=== PATIENT | male | born 1965 | race Caucasian/White ===

== ENCOUNTER → 2017-05-26 | Outpatient (CLI) | payer OTHER ==
[~2017-05-26] MED LIST: ALBU18002 INH; ALL180 PO; ASCA500 PO; CALC600T9 PO; CALCTAB5 PO; CETI10TA84 PO; CLX20 PO; ECHI400C11 PO; FLVHFA110 INH; GINK120T PO; MELO15TA4 PO; MULT-506 PO; PRIM50TA29 PO; PROP80TA2 PO; SERT-234 PO
[2017-05-26 09:54] LABS: URINE APPEARANCE CLEAR (CLEAR); URINE BILIRUBIN NEG (NEG); URINE COLOR YELLOW; URINE EPITHELIAL CELL AUTO 0-5 /lpf (0-5); URINE NITRITE NEG (NEG); URINE PH 7.5 (4.5-7.5); UROBILINOGEN NEG (NEG)
[2017-05-26 09:58] LABS: MANUAL MICROSCOPIC REQUIRED? NO; REVIEW REQ? NO
[2017-05-26 10:17] LABS: TOTAL IRON BINDING CAPACITY 382 mcg/dl (250-450)
[2017-05-29 05:41] LABS: ANTI-CENTROMERE AB <1.0 NEG AI (<1.0 NEG); ANTI-SS-A <1.0 NEG AI (<1.0 NEG); ANTI-SS-B <1.0 NEG AI (<1.0 NEG); DNA ds CRITHIDIA NEGATIVE (NEGATIVE); Sm Antibody <1.0 NEG AI (<1.0 NEG)
== END | disposition home or self-care (01) ==
LOC: C.LAB1850 08:59
PROVIDERS: ATTEND Internal Medicine Rheumatology
DX: M25.50 Pain in unspecified joint (principal); R76.8 Other specified abnormal immunological findings in serum

== ENCOUNTER → 2017-06-05 | Outpatient (CLI) | payer OTHER ==
--- NOTE | 2017-06-05 08:04 | DIAGNOSTIC IMAGING REPORT ---
MRI OF THE CERVICAL SPINE WITHOUT IV CONTRAST CLINICAL HISTORY: Chronic neck pain. Upper extremity weakness. COMPARISON STUDY: No priors. TECHNIQUE: MRI of the cervical spine is performed utilizing various T1 and T2-weighted sequences in the axial and sagittal planes. IV contrast was not administered for this examination. FINDINGS: Cervical spine: Vertebral body height and alignment are maintained throughout the cervical spine. Marrow signal intensity is slightly heterogeneous. Minimal chronic appearing degenerative endplate change is noted at C2-C3. The atlantodental articulation appears preserved. The spinous processes are intact. Intervertebral discs: Mild degenerative disc desiccation is seen throughout the cervical spine. The disc spaces appear preserved. Spinal cord: The cervical spinal cord is normal in morphology and signal intensity. C2-C3: Mild facet arthropathy is of no consequence. The central canal and neural foramina are patent. C3-C4: A posterior disc osteophyte complex eccentric to the left abuts the ventral cord. Uncovertebral and facet arthropathy cause severe bilateral neural foraminal stenosis. C4-C5: A tiny posterior disc osteophyte complex minimally effaces the ventral subarachnoid space. Uncovertebral and facet arthropathy cause moderate right and mild left neural foraminal stenosis. C5-C6: A posterior disc osteophyte complex effaces the ventral subarachnoid space. Uncovertebral and facet arthropathy cause moderate to severe right and [id number] left neural foraminal stenosis. C6-C7: Uncovertebral and facet arthropathy cause mild left neural foraminal stenosis. C7-T1: Unremarkable. Soft tissues: The prevertebral and paraspinous soft tissues are within normal limits. There is a 1.8 cm nodule identified in the left thyroid lobe. Brain parenchyma: The partially imaged brain parenchyma at the skull base is normal in appearance. IMPRESSION: 1. Mild multilevel cervical spondylosis as detailed above. See discussion for level by level analysis. 2. No destructive bony process is seen. 3. The cervical spinal cord is normal in morphology and signal intensity. 4. There is a 1.8 cm nodule identified in the left thyroid lobe. Follow-up with a dedicated thyroid ultrasound is recommended for further assessment. Dictated: 06/05/2017 7:53 AM Transcribed: 06/05/2017 8:03 AM [place] Electronically signed by: Eric Brooks M.D. 06/05/2017 8:29 AM Dictated Date/Time: 06/05/2017 7:53 AM
== END | disposition home or self-care (01) ==
LOC: C.MRIBC 06:55
PROVIDERS: ATTEND Psychiatry & Neurology Neurology
DX: M47.12 Other spondylosis with myelopathy, cervical region (principal); E04.1 Nontoxic single thyroid nodule

== ENCOUNTER → 2017-06-09 | Outpatient (CLI) | payer OTHER ==
[~2017-06-09] MED LIST changes: -ALL180 PO; -CALCTAB5 PO; -CLX20 PO
--- NOTE | 2017-06-09 08:58 | DIAGNOSTIC IMAGING REPORT ---
ULTRASOUND RIGHT UPPER QUADRANT ABDOMEN CLINICAL HISTORY: Bloating. COMPARISON STUDY: No priors. TECHNIQUE: Real-time, grayscale, and color flow sonography of the right upper quadrant of the abdomen was performed. Images are reviewed in the transverse and longitudinal planes. FINDINGS: Liver: The liver is normal in size and echotexture. There is no intrahepatic biliary ductal dilatation. The main portal vein is patent. There is a 1.9 cm well-circumscribed echogenic lesion in the right lobe of the liver. Gallbladder: Shadowing calcified gallstones are identified. There is no gallbladder wall thickening or pericholecystic fluid. A sonographic Rocha's sign is reportedly absent. The common bile duct measures up to 0.4 cm in diameter. Pancreas: Not well visualized due to overlying bowel gas. Right kidney: Survey images of the right kidney demonstrate normal size and echotexture. There is no hydronephrosis. A 6 mm exophytic cyst arises from the lower pole. Ascites: None. IMPRESSION: 1. Cholelithiasis without sonographic evidence of acute cholecystitis. 2. There is a 1.9 cm well-circumscribed echogenic lesion in the right hepatic lobe. Although pathologically indeterminant, the appearance is typical for a benign hemangioma. This is of low suspicion, and if confirmation is desired then an MRI of the liver would be required. 3. The pancreas was not well visualized due to overlying bowel gas. Electronically signed by: Eric Brooks M.D. 06/09/2017 8:56 AM Dictated Date/Time: 06/09/2017 8:54 AM
== END | disposition home or self-care (01) ==
LOC: C.ULTRBC 08:02
PROVIDERS: ATTEND Nurse Practitioner Adult Health
DX: K80.20 Calculus of gallbladder without cholecystitis without obstruction (principal); R14.0 Abdominal distension (gaseous); K76.9 Liver disease, unspecified

== ENCOUNTER → 2017-06-10 | Outpatient (CLI) | payer OTHER ==
--- NOTE | 2017-06-10 14:21 | DIAGNOSTIC IMAGING REPORT ---
TWO VIEW CHEST CLINICAL HISTORY: Asthma. FINDINGS: PA and lateral chest radiographs are obtained. The cardiomediastinal silhouette is unremarkable. There is left basilar atelectasis. The lungs and pleural spaces are otherwise clear. There is no pneumothorax. The bony thorax appears intact. IMPRESSION: No active disease in the chest. Electronically signed by: Eric Brooks M.D. 06/10/2017 2:20 PM Dictated Date/Time: 06/10/2017 2:17 PM
== END | disposition home or self-care (01) ==
LOC: C.RAD1850 14:03
PROVIDERS: ATTEND Internal Medicine Pulmonary Disease
DX: J45.909 Unspecified asthma, uncomplicated (principal)

== ENCOUNTER → 2017-06-16 | Outpatient (CLI) | payer OTHER ==
--- NOTE | 2017-06-16 08:47 | DIAGNOSTIC IMAGING REPORT ---
ULTRASOUND OF THE THYROID GLAND CLINICAL HISTORY: Thyroid nodule seen by MRI. COMPARISON STUDY: MRI of the cervical spine dated 06/05/2017. TECHNIQUE: Real-time, grayscale, and color flow sonography of the thyroid gland is performed utilizing a high-frequency linear transducer. Images are reviewed in the transverse and longitudinal planes. FINDINGS: Right lobe: The right lobe of the thyroid gland is normal in size and homogeneous in echotexture, measuring 5.2 x 2.1 x 1.7 cm. A hypoechoic nodule in the upper pole measures 0.7 x 0.5 x 0.6 cm. Left lobe: The left lobe of the thyroid gland is normal in size and homogeneous in echotexture, measuring 4.9 x 2.4 x 2.2 cm. A heterogeneous hypoechoic nodule in the lower pole measures 2.4 x 1.6 x 1.7 cm. This demonstrates internal flow on color imaging. Isthmus: The thyroid isthmus is normal in appearance and measures 0.3 cm in AP diameter. IMPRESSION: There is a 2.4 cm hypoechoic nodule in the left lower pole, corresponding to the abnormality seen by MRI. Fine-needle aspiration of this nodule is recommended based on size criteria. Electronically signed by: Eric Brooks M.D. 06/16/2017 8:46 AM Dictated Date/Time: 06/16/2017 8:44 AM
== END | disposition home or self-care (01) ==
LOC: C.ULTRBC 08:00
PROVIDERS: ATTEND Psychiatry & Neurology Neurology
DX: E04.1 Nontoxic single thyroid nodule (principal)

== ENCOUNTER 2017-06-20 05:50 | Observation (INO) | payer OTHER ==
[~2017-06-20] VITALS: Ht 185.4 cm; Wt 97.7 kg
[2017-06-20] MEDS ORDERED: OMEP20TA PO (06:13)
[2017-06-20] MEDS ORDERED: ONDANSETRON 4MG OD TAB PO STA (06:17)
[2017-06-20] MEDS ORDERED: PROP20TA67 PO (06:20)
[2017-06-20] MEDS ORDERED: METO-157 PO (06:21)
[2017-06-20] MEDS ORDERED: AZEL0.15 NAE (06:22)
[2017-06-20] MEDS ORDERED: PROMETHAZINE HCL INJ 12.5 MG in SODIUM CHLORIDE 0.9% 50ML 50 ML IV STA (06:34)
[2017-06-20 06:43] LABS: BASO % 0.1 %; BASO ABS # 0.01 K/uL (0-0.2); COMPLETE YES; EOS % 1.1 %; HEMATOCRIT 47.6 % (42-52); IG% 0.1 %; LYMPH % 5.4 %; LYMPH ABS # 0.41 K/uL (1.2-3.4); MEAN CELL VOLUME 87.7 fL (80-100); MEAN CORPUSCULAR HEMOGLOBIN 31.9 pg (25-34); MEAN CORPUSCULAR HGB CONC 36.3 g/dl (32-36); MONO % 7.6 %; NEUT % 85.7 %; PLATELET COUNT 136 K/uL (130-400); RED BLOOD COUNT 5.43 M/uL (4.7-6.1); WHITE BLOOD COUNT 7.54 K/uL (4.8-10.8)
[2017-06-20] MEDS ORDERED: SODIUM CHLORIDE 0.9% 1000ML 1,000 ML IV ONE (06:45)
[2017-06-20 06:53] LABS: BUN/CREATININE RATIO 20.7 (10-20); CALCIUM 9.5 mg/dl (8.5-10.1); CREATININE 1.09 mg/dl (0.60-1.40); POTASSIUM 3.9 mmol/L (3.5-5.1)
[2017-06-20 06:56] LABS: ALB/GLOB RATIO 1.3 (0.9-2)
--- NOTE | 2017-06-20 09:17 | DIAGNOSTIC IMAGING REPORT ---
GALLBLADDER-ABD LIMITED CLINICAL HISTORY: ruq pain pain. Nausea. TECHNIQUE: Ultrasound COMPARISON STUDY: 06/09/2017 FINDINGS: Gallstones are again noted within the gallbladder lumen. Gallbladder wall is normal. No abnormal or cholecystic fluid. Common bile duct measures 4 mm. There is a 1.6 cm echogenic nodule] right hepatic lobe consistent with a benign hemangioma is again noted. Pancreas is unremarkable. Right kidney is negative for hydronephrosis. The right renal cysts as well as a small nonobstructing lower pole calcifications present. IMPRESSION: 1. Gallstones. 2. Normal caliber bile ducts. 3. Incidental findings unchanged from the prior exam. The above report was generated using voice recognition software. It may contain grammatical, syntax or spelling errors. Electronically signed by: Anthony Goncalves M.D. 06/20/2017 9:15 AM Dictated Date/Time: 06/20/2017 9:12 AM
[2017-06-20] MEDS ORDERED: ONDANSETRON INJ 2 MG/ML 2 ML VIAL IV STA (09:51)
--- NOTE | 2017-06-20 11:11 | EMERGENCY ROOM VISIT NOTE ---
History Report prepared by Tona: Pankaj Yepez Under the Supervision of: Dr. Eduard Valenzuela M.D. First contact with patient: 06:29 Chief Complaint: VOMITING Stated Complaint: VOMITING,DIARRHEA Nursing Triage Summary: pt c/o bloating and vomiting beginning last night approx 22:00. states he has an appointment today to schedule potential gall bladder surgery, reports he was seen earlier this week for abd pain/bloating and given medication. states pain is "pressing" on his back and chest. pt associates diarrhea and hiccuping History of Present Illness The patient is a 51 year old male who presents to the Emergency Room with complaints of persistent vomiting beginning 8 hours ago. He states that he has been having episodes of similar symptoms associated with GERD and back pain for several years. He recently had a scan and was found to have large gallbladder stones. The patient states that he has been hiccuping a lot between episodes of vomiting. He also complains of abdominal pain. He denies any leg swelling. Source of History: patient Onset: 8 hours ago Quality: other (vomiting) Timing: other (persistent) Associated Symptoms: + abdominal pain Note: The patient denies any leg swelling. Review of Systems All systems have been listed, reviewed, and are negative other than those previously mentioned. Please see Additional Medical History Sheet. Past Medical & Surgical Medical Problems: (1) Abdominal bloating (2) Hernia (3) Nausea and vomiting (4) RUQ abdominal pain Surgical Problems: (1) H/O elbow surgery (2) S/P wrist surgery Family History No pertinent family history stated. Social History Smoking Status: Never Smoker Marital Status: Current/Historical Medications Scheduled Ascorbic Acid (Vitamin C), 500 MG PO DAILY Calcium Carbonate-Vitamin D (Calcium + D), 1 TAB PO DAILY Cetirizine (Zyrtec), 10 MG PO DAILY Echinacea (Echinacea), 400 MG PO BID Fluticasone Propionate (Flovent Hfa), 1 PUFF INH BID Ginkgo Biloba (Gnp Ginkgo Biloba), 1 TAB PO DAILY Meloxicam (Meloxicam), 15 MG PO QAM Metoclopramide (Reglan), 5 MG PO TID Multivitamin (Multivitamin), 1 TAB PO DAILY Omeprazole (Omeprazole), 20 MG PO QAM Primidone (Mysoline), 50 MG PO QAM Propranolol (Inderal), 40 MG PO BID Sertraline (Zoloft), 200 MG PO QAM Scheduled PRN Azelastine Hcl (Astepro), 2 SPRY AARON DAILY PRN for CONGESTION Allergies Coded Allergies: No Known Allergies (Unverified , 06/05/17) Physical Exam Vital Signs Date Time Temp Pulse Resp B/P (MAP) Pulse Ox O2 Delivery O2 Flow Rate FiO2 06/20/17 12:00 99 16 110/63 96 Room Air 06/20/17 10:02 91 16 104/64 93 Room Air 06/20/17 08:32 88 18 105/63 94 Room Air 06/20/17 05:57 37.0 104 20 145/85 98 Room Air Physical Exam GENERAL: Patient awake, alert, oriented x 3. Marked distress. Extremely uncomfortable appearing. Patient follows commands. Patient does not appear toxic. Patient is adequately hydrated and well-nourished. SKIN: No erythema, pallor, cyanosis or rash HEENT: Normal head, pupils equal, reactive to light and accommodation. Oral cavity and posterior pharynx appear normal. Neck: Without adenopathy, no neck vein distention. LUNGS: Clear to auscultation. No wheezes, no rales, no rhonchi. HEART: No murmurs. No gallops. No rubs ABDOMEN: No masses, no hepatomegaly or splenomegaly. Diffuse tenderness mostly to the RUQ. Positive guarding. No rebound. EXTREMITIES: No signs of trauma. No pedal or pretibial edema. No calf or thigh tenderness. NEUROLOGIC: Cranial nerves II-XII within normal limits. No gross motor sensory function deficits. Medical Decision & Procedures ER Provider Diagnostic Interpretation: Radiology results as stated below per my review and radiologist interpretation: GALLBLADDER-ABD LIMITED FINDINGS: Gallstones are again noted within the gallbladder lumen. Gallbladder wall is normal. No abnormal or cholecystic fluid. Common bile duct measures 4 mm. There is a 1.6 cm echogenic nodule] right hepatic lobe consistent with a benign hemangioma is again noted. Pancreas is unremarkable. Right kidney is negative for hydronephrosis. The right renal cysts as well as a small nonobstructing lower pole calcifications present. IMPRESSION: 1. Gallstones. 2. Normal caliber bile ducts. 3. Incidental findings unchanged from the prior exam. The above report was generated using voice recognition software. It may contain grammatical, syntax or spelling errors. Electronically signed by: Anthony Goncalves M.D. 06/20/2017 9:15 AM Laboratory Results 06/20/17 06:14 Red Blood Count 5.43, Mean Corpuscular Volume 87.7, Mean Corpuscular Hemoglobin 31.9, Mean Corpuscular Hemoglobin Concent 36.3, Mean Platelet Volume 9.0, Neutrophils (%) (Auto) 85.7, Lymphocytes (%) (Auto) 5.4, Monocytes (%) (Auto) 7.6, Eosinophils (%) (Auto) 1.1, Basophils (%) (Auto) 0.1, Neutrophils # (Auto) 6.46, Lymphocytes # (Auto) 0.41, Monocytes # (Auto) 0.57, Eosinophils # (Auto) 0.08, Basophils # (Auto) 0.01 06/20/17 06:14 Test 06/20/17 06:14 White Blood Count 7.54 K/uL (4.8-10.8) Red Blood Count 5.43 M/uL (4.7-6.1) Hemoglobin 17.3 g/dL (14.0-18.0) Hematocrit 47.6 % (42-52) Mean Corpuscular Volume 87.7 fL (80-100) Mean Corpuscular Hemoglobin 31.9 pg (25-34) Mean Corpuscular Hemoglobin Concent 36.3 g/dl (32-36) Platelet Count 136 K/uL (130-400) Mean Platelet Volume 9.0 fL (7.4-10.4) Neutrophils (%) (Auto) 85.7 % Lymphocytes (%) (Auto) 5.4 % Monocytes (%) (Auto) 7.6 % Eosinophils (%) (Auto) 1.1 % Basophils (%) (Auto) 0.1 % Neutrophils # (Auto) 6.46 K/uL (1.4-6.5) Lymphocytes # (Auto) 0.41 K/uL (1.2-3.4) Monocytes # (Auto) 0.57 K/uL (0.11-0.59) Eosinophils # (Auto) 0.08 K/uL (0-0.5) Basophils # (Auto) 0.01 K/uL (0-0.2) RDW Standard Deviation 40.6 fL (36.4-46.3) RDW Coefficient of Variation 12.8 % (11.5-14.5) Immature Granulocyte % (Auto) 0.1 % Immature Granulocyte # (Auto) 0.01 K/uL (0.00-0.02) Anion Gap 8.0 mmol/L (3-11) Est Creatinine Clear Calc Drug Dose 99.8 ml/min Estimated GFR () 91.2 Estimated GFR (Non- 78.7 BUN/Creatinine Ratio 20.7 (10-20) Calcium Level 9.5 mg/dl (8.5-10.1) Total Bilirubin 2.1 mg/dl (0.2-1) Aspartate Amino Transf (AST/SGOT) 15 U/L (15-37) Alanine Aminotransferase (ALT/SGPT) 37 U/L (12-78) Alkaline Phosphatase 77 U/L (45-117) Total Protein 7.9 gm/dl (6.4-8.2) Albumin 4.4 gm/dl (3.4-5.0) Globulin 3.5 gm/dl (2.5-4.0) Albumin/Globulin Ratio 1.3 (0.9-2) Lipase 135 U/L (73-393) Laboratory results as stated above per my review. Medications Administered Medications (Trade) Dose Ordered Sig/Shante Route Start Time Stop Time Status Last Admin Dose Admin Ondansetron HCl (Zofran Odt) 4 mg NOW STAT PO 06/20/17 06:17 06/20/17 06:18 DC 06/20/17 06:24 4 MG Promethazine HCl 12.5 mg/Sodium Chloride 50.5 ml @ 204 mls/hr NOW STAT IV 06/20/17 06:34 06/20/17 06:48 DC 06/20/17 06:48 204 MLS/HR Sodium Chloride 1,000 ml @ 1,000 mls/hr Q1H ONCE IV 06/20/17 06:45 06/20/17 07:44 DC 06/20/17 06:48 1,000 MLS/HR Ondansetron HCl (Zofran Inj) 4 mg NOW STAT IV 06/20/17 09:51 06/20/17 09:52 DC 06/20/17 10:15 4 MG Ondansetron HCl (Zofran Inj) 4 mg Q4H PRN IV 06/20/17 12:15 07/20/17 12:14 06/20/17 12:35 4 MG Morphine Sulfate (MoRPHine SULFATE INJ) 1 mg Q1H PRN IV 06/20/17 12:15 07/04/17 12:14 06/20/17 14:02 1 MG ED Course 0629: Past medical records reviewed. The patient was evaluated in room B9. A complete history and physical examination was performed. 0634: Ordered Promethazine HCl 12.5 mg/Sodium Chloride 50.5 ml @ 204 mls/hr IV. 0645: Ordered Sodium Chloride 1000 ml @ 1000 mls/hr IV. 0951: Ordered Zofran Inj 4 mg IV. 1055: Upon reevaluation, the patient is resting comfortably.I discussed today's findings with him. He verbalized agreement of the treatment plan. I spoke with Ana Mueller PA-C of General Surgery to evaluate the patient for further management. Medical Decision Nurses notes reviewed. Medical history sheet reviewed. Differential diagnosis includes but is not limited to: cholelithiasis, cholecystitis, ruptured viscus, and peritonitis. Multiple labs and imaging were obtained. Please see above. Liver enzymes are not elevated. White count is not elevated. Ultrasound does not show cholecystitis but only cholelithiasis. The patient has stones similar to what he had in the past but now the pain is much worse along with nausea and vomiting. I discussed care with Dr. Chowdhury, who scheduled to see the patient in his office today. The patient and are adamant about having something done NOAH. I was instructed to call the surgeon on-call which I did. I spoke with the physician practice assistant who managed to have the patient admitted for surgery in the near future. Medication Reconcilliation Current Medication List: was personally reviewed by me Blood Pressure Screening Patient's blood pressure: Normal blood pressure Blood pressure disposition: Did not require urgent referral Consults Time Called: [phone] Consulting Physician: Dr. Chowdhury -General Surgery Returned Call: [phone] Discussed the patient's case with Dr. Chowdhury. He recommends consultation with the on-call surgeon. Additional Consults: Time Called: 1050 Consulted Physician: Ana Mueller PA-C -General Surgery Returned Call: [phone] Additional Comments: Discussed the patient's case with Ana Mueller PA-C. The patient will be evaluated for further management. Impression Primary Impression: Cholelithiasis Additional Impressions: Nausea & vomiting Dehydration Scribe Attestation The scribe's documentation has been prepared under my direction and personally reviewed by me in its entirety. I confirm that the note above accurately reflects all work, treatment, procedures, and medical decision making performed by me. Departure Information Dispostion Being Evaluated By Surgeon Referrals RV. Peralta MD (PCP) Patient Instructions My [facility] Problem Qualifiers
[2017-06-20] MEDS ORDERED: MoRPHine SULFATE 4 MG/ML 1 ML CARP\\VIAL IV PRN (12:15)
[2017-06-20] MEDS ORDERED: MoRPHine SULFATE 2 MG/ML CARP IV PRN (12:15)
[2017-06-20] MEDS ORDERED: PROMETHAZINE HCL INJ 12.5 MG in SODIUM CHLORIDE 0.9% 50ML 50 ML IV PRN (12:15)
[2017-06-20] MEDS ORDERED: ONDANSETRON INJ 2 MG/ML 2 ML VIAL IV PRN (12:15)
[2017-06-20 12:35] VITALS: O2SAT 96; Ht 185.4 cm; Wt 97.7 kg
--- NOTE | 2017-06-20 12:43 | History and Physical ---
History & Physical Date & Time of Service: Jun 20, 2017 at 12:31 Chief Complaint: Vomiting,Diarrhea Primary Care Physician: RV. Peralta MD History of Present Illness Source: patient Chris is a 51 year-old male who presented to emergency department this morning with complaints of persistent nausea and vomiting with associated abdominal pain and diarrhea. States he recently had a work-up by PCP with an ultrasound that showed gallstones and was scheduled to meet with Dr. Chowdhury this morning to discuss gallbladder removal. States he has had hiccups for the past week with abdominal bloating. Has watched what he has been eating decreasing any fatty/greasy meals. States the pain originated in his back but now has radiated to the right upper abdomen. Pain is on and off. Nausea and vomiting however has been persistent since last evening. Diarrhea with different colored stools no rectal bleeding. Has slight chills this am but no fever. Has never had problems with his gallbladder before. Has noticed postprandial bloating and feeling full quicker in the past couple of months to years. Has decade history of heartburn which he takes tums for. Was just prescribed Omeprazole. Denies of any significant increase in heartburn/reflux in the last week. Denies of night sweats, vomiting blood, chest pain, shortness of breath other than his normal (takes Inhaler daily and rescue inhaler as needed), difficulty breathing, blood in stools, blood in urine, or difficulty urinating. US on 06/09/2017 showed gallstones however no GB wall thickening or pericholecystic fluid US today showed same with no significant change and no signs of acute cholecystitis. Patient states he did have pain during the ultrasound today however. Labs showed no leukocytosis , LFTS within normal limits however T. Bili elevated at 2.1 Past Medical/Surgical History Past Medical history: 1. Hand tremors 2. Enlarged Thyroid 3. GERD 4. Cholelithiasis 5. Arthritis in knee Past Surgical History: (1) Bilateral inguinal Hernia repair with mesh (open) (2) H/O elbow surgery (3) S/P wrist surgery (4) Eye Surgery Family History Patient adopted, unsure of family history Social History Smoking Status: Never Smoker Marital Status: Multi-Drug Resistant Organisms History of MDRO: No Allergies Coded Allergies: No Known Allergies (Unverified , 06/05/17) Home Medications Scheduled Ascorbic Acid (Vitamin C), 500 MG PO DAILY Calcium Carbonate-Vitamin D (Calcium + D), 1 TAB PO DAILY Cetirizine (Zyrtec), 10 MG PO DAILY Echinacea (Echinacea), 400 MG PO BID Fluticasone Propionate (Flovent Hfa), 1 PUFF INH BID Ginkgo Biloba (Gnp Ginkgo Biloba), 1 TAB PO DAILY Meloxicam (Meloxicam), 15 MG PO QAM Metoclopramide (Reglan), 5 MG PO TID Multivitamin (Multivitamin), 1 TAB PO DAILY Omeprazole (Omeprazole), 20 MG PO QAM Primidone (Mysoline), 50 MG PO QAM Propranolol (Inderal), 40 MG PO BID Sertraline (Zoloft), 200 MG PO QAM Scheduled PRN Azelastine Hcl (Astepro), 2 SPRY AARON DAILY PRN for CONGESTION Review of Systems Constitutional: + chills, No fever, No sweats Respiratory: No cough, No shortness of breath Cardiovascular: No chest pain Abdomen: + pain, + nausea, + vomiting, + diarrhea, No constipation, No GI bleeding Musculoskeletal: + problem reported (back pain more so in right mid back) Genitourinary - Male: + dysuria (just today), No hematuria Endocrine: No fatigue Integumentary: No rash, No itch Physical Exam Vital Signs Date Time Temp Pulse Resp B/P (MAP) Pulse Ox O2 Delivery O2 Flow Rate FiO2 06/20/17 12:00 9 16 110/63 96 Room Air 06/20/17 10:02 91 16 104/64 93 Room Air 06/20/17 08:32 88 18 105/63 94 Room Air 06/20/17 05:57 37.0 104 20 145/85 98 Room Air General Appearance: WD/WN, + mild distress Head: normocephalic, atraumatic Eyes: sclerae normal ENT: hearing grossly normal Neck: supple, no adenopathy, trachea midline Respiratory/Chest: lungs clear, normal breath sounds, no respiratory distress, no accessory muscle use Cardiovascular: regular rate, rhythm, no murmur Abdomen/GI: soft, no organomegaly, no pulsatile mass, + tenderness (in RUQ, negative Rocha's sign, no peritonitis or rigidity), + distended Back: normal inspection Extremities/Musculoskelatal: normal inspection Neurologic/Psych: alert, normal mood/affect, oriented x 3 Skin: normal color, warm/dry, no rash Diagnostics Laboratory Results Results Past 24 Hours Test 06/20/17 06:14 Range/Units White Blood Count 7.54 4.8-10.8 K/uL Red Blood Count 5.43 4.7-6.1 M/uL Hemoglobin 17.3 14.0-18.0 g/dL Hematocrit 47.6 42-52 % Mean Corpuscular Volume 87.7 80-100 fL Mean Corpuscular Hemoglobin 31.9 25-34 pg Mean Corpuscular Hemoglobin Concent 36.3 32-36 g/dl Platelet Count 136 130-400 K/uL Mean Platelet Volume 9.0 7.4-10.4 fL Neutrophils (%) (Auto) 85.7 % Lymphocytes (%) (Auto) 5.4 % Monocytes (%) (Auto) 7.6 % Eosinophils (%) (Auto) 1.1 % Basophils (%) (Auto) 0.1 % Neutrophils # (Auto) 6.46 1.4-6.5 K/uL Lymphocytes # (Auto) 0.41 1.2-3.4 K/uL Monocytes # (Auto) 0.57 0.11-0.59 K/uL Eosinophils # (Auto) 0.08 0-0.5 K/uL Basophils # (Auto) 0.01 0-0.2 K/uL RDW Standard Deviation 40.6 36.4-46.3 fL RDW Coefficient of Variation 12.8 11.5-14.5 % Immature Granulocyte % (Auto) 0.1 % Immature Granulocyte # (Auto) 0.01 0.00-0.02 K/uL Sodium Level 137 136-145 mmol/L Potassium Level 3.9 3.5-5.1 mmol/L Chloride Level 107 98-107 mmol/L Carbon Dioxide Level 22 21-32 mmol/L Anion Gap 8.0 3-11 mmol/L Blood Urea Nitrogen 23 7-18 mg/dl Creatinine 1.09 0.60-1.40 mg/dl Est Creatinine Clear Calc Drug Dose 99.8 ml/min Estimated GFR () 91.2 Estimated GFR (Non- 78.7 BUN/Creatinine Ratio 20.7 10-20 Random Glucose 116 70-99 mg/dl Calcium Level 9.5 8.5-10.1 mg/dl Total Bilirubin 2.1 0.2-1 mg/dl Aspartate Amino Transf (AST/SGOT) 15 15-37 U/L Alanine Aminotransferase (ALT/SGPT) 37 12-78 U/L Alkaline Phosphatase 77 45-117 U/L Total Protein 7.9 6.4-8.2 gm/dl Albumin 4.4 3.4-5.0 gm/dl Globulin 3.5 2.5-4.0 gm/dl Albumin/Globulin Ratio 1.3 0.9-2 Lipase 135 73-393 U/L Diagnostic Radiology GALLBLADDER-ABD LIMITED CLINICAL HISTORY: ruq pain pain. Nausea. TECHNIQUE: Ultrasound COMPARISON STUDY: 06/09/2017 FINDINGS: Gallstones are again noted within the gallbladder lumen. Gallbladder wall is normal. No abnormal or cholecystic fluid. Common bile duct measures 4 mm. There is a 1.6 cm echogenic nodule] right hepatic lobe consistent with a benign hemangioma is again noted. Pancreas is unremarkable. Right kidney is negative for hydronephrosis. The right renal cysts as well as a small nonobstructing lower pole calcifications present. IMPRESSION: 1. Gallstones. 2. Normal caliber bile ducts. 3. Incidental findings unchanged from the prior exam. Impression Assessment and Plan 51 year-old with Symptomatic Cholelithiasis who presents to emergency department with persistent nausea and vomiting with associated chills and diarrhea that started last evening around 10 pm. RUQ abdominal increasing in the past week. Pain began in the right mid back and has now moved mostly to the right upper abdomen. Associated bloating with intractable hiccups. US showing cholelithiasis however no signs of acute cholecystitis. No leukocytosis and afebrile. T. Bili elevated at 2.1 however rest of LFTS and lipase within normal limits. Plan: Will admit patient for observation for the evening and plan for laparoscopic cholecystectomy tomorrow morning. Discussed procedure and risks with the patient and his , they both understood, informed consent will be obtained by Dr. Negron Will ensure he is kept NPO Will start IV fluids, IV antibiotics, IV Zofran/Phenergan, IV pain medication as needed Will add simethicone chew tabs as needed for bloating Will also add IV Protonix daily given history of GERD SCDs Will get a set of labs in the am cbc, bmp, and liver profile will also obtain EKG preoperatively Discussed patient with Dr. Negron who agrees with above Level of Care Med/Surg VTE Prophylaxis VTE Risk Assessment Done? Y/N: Yes Risk Level: Low
[2017-06-20] MEDS ORDERED: PIPERACILL/TAZOBAC IV 3.375 GM in DEXTROSE 5% 100ML IV STA (13:24)
[2017-06-20] MEDS ORDERED: PIPERACILL/TAZOBAC CONSULT ACTIVE PRN (13:30)
[2017-06-20 13:45] VITALS: BP 113/73; PULSE 89; TEMP 38.3; O2SAT 96
[2017-06-20] MEDS ORDERED: IV FLUIDS COMPLETED PRN (13:45)
[2017-06-20] MEDS: SODIUM CHLORIDE 0.9% 1000ML 1,000 ML IV SCH ×2 (14:02→22:25)
[2017-06-20] MEDS: PANTOprazole INJ 40 MG in SYRINGE 0 ML IV SCH (14:33)
[2017-06-20 15:26] VITALS: BP 130/64; PULSE 112; TEMP 37.7; O2SAT 95
[2017-06-20] MEDS: SIMETHICONE 80 MG CHEW PO PRN (15:36)
[2017-06-20] MEDS: ACETAMINOPHEN 325 MG TAB PO PRN (15:47)
[2017-06-20] MEDS ORDERED: NURSING VERBAL MED ORDER ONE (17:15)
[2017-06-20 17:23] VITALS: TEMP 37.5
[2017-06-20] MEDS ORDERED: CHLORPROMAZINE HCL 25 MG TAB PO PRN (17:30)
[2017-06-20] MEDS: PIPERACILL/TAZOBAC IV 3.375 GM in DEXTROSE 5% 100ML 100 ML IV SCH (20:15)
[2017-06-20 23:21] VITALS: BP 120/71; PULSE 81; TEMP 36.9; O2SAT 95
[2017-06-21] VITALS (8 sets, daily range): BP systolic 118–162; BP diastolic 77–89; PULSE 68–111; TEMP 36.3–37; O2SAT 94–97
[2017-06-21] MEDS: PIPERACILL/TAZOBAC IV 3.375 GM in DEXTROSE 5% 100ML 100 ML IV SCH ×3 (04:27→20:31)
--- NOTE | 2017-06-21 05:16 | Surgery Progress Note ---
Surgery Progress Note Date of Service Jun 21, 2017. Subjective Post OP Day: HD 2 + feeling well (hiccups better), + flatus, + pain controlled, No nausea, No vomiting Objective Vital Signs: Date Time Temp Pulse Resp B/P (MAP) Pulse Ox O2 Delivery O2 Flow Rate FiO2 06/20/17 23:35 Room Air 06/20/17 23:21 36.9 81 16 120/71 (87) 95 Room Air 06/20/17 17:23 37.5 06/20/17 15:40 Room Air 06/20/17 15:26 37.7 112 18 130/64 (86) 95 Room Air 06/20/17 13:45 38.3 89 24 113/73 (86) 96 Room Air 06/20/17 12:35 96 Room Air 06/20/17 12:00 99 16 110/63 96 Room Air 06/20/17 10:02 91 16 104/64 93 Room Air 06/20/17 08:32 88 18 105/63 94 Room Air 06/20/17 05:57 37.0 104 20 145/85 98 Room Air General Appearance: WD/WN, no apparent distress Head: normocephalic, atraumatic Neck: supple, trachea midline Respiratory/Chest: lungs clear Cardiovascular: regular rate, rhythm Abdomen: normal bowel sounds, non distended, soft, + tenderness Extremities: non-tender, no pedal edema Laboratory Results: Results Past 24 Hours Test 06/20/17 06:14 06/21/17 04:44 Range/Units White Blood Count 7.54 4.8-10.8 K/uL Red Blood Count 5.43 4.7-6.1 M/uL Hemoglobin 17.3 14.0-18.0 g/dL Hematocrit 47.6 42-52 % Mean Corpuscular Volume 87.7 80-100 fL Mean Corpuscular Hemoglobin 31.9 25-34 pg Mean Corpuscular Hemoglobin Concent 36.3 32-36 g/dl Platelet Count 136 130-400 K/uL Mean Platelet Volume 9.0 7.4-10.4 fL Neutrophils (%) (Auto) 85.7 % Lymphocytes (%) (Auto) 5.4 % Monocytes (%) (Auto) 7.6 % Eosinophils (%) (Auto) 1.1 % Basophils (%) (Auto) 0.1 % Neutrophils # (Auto) 6.46 1.4-6.5 K/uL Lymphocytes # (Auto) 0.41 1.2-3.4 K/uL Monocytes # (Auto) 0.57 0.11-0.59 K/uL Eosinophils # (Auto) 0.08 0-0.5 K/uL Basophils # (Auto) 0.01 0-0.2 K/uL RDW Standard Deviation 40.6 36.4-46.3 fL RDW Coefficient of Variation 12.8 11.5-14.5 % Immature Granulocyte % (Auto) 0.1 % Immature Granulocyte # (Auto) 0.01 0.00-0.02 K/uL Sodium Level 137 136-145 mmol/L Potassium Level 3.9 3.5-5.1 mmol/L Chloride Level 107 98-107 mmol/L Carbon Dioxide Level 22 21-32 mmol/L Anion Gap 8.0 3-11 mmol/L Blood Urea Nitrogen 23 7-18 mg/dl Creatinine 1.09 0.60-1.40 mg/dl Est Creatinine Clear Calc Drug Dose 99.8 ml/min Estimated GFR () 91.2 Estimated GFR (Non- 78.7 BUN/Creatinine Ratio 20.7 10-20 Random Glucose 116 70-99 mg/dl Calcium Level 9.5 8.5-10.1 mg/dl Total Bilirubin 2.1 0.2-1 mg/dl Aspartate Amino Transf (AST/SGOT) 15 15-37 U/L Alanine Aminotransferase (ALT/SGPT) 37 12-78 U/L Alkaline Phosphatase 77 45-117 U/L Total Protein 7.9 6.4-8.2 gm/dl Albumin 4.4 3.4-5.0 gm/dl Globulin 3.5 2.5-4.0 gm/dl Albumin/Globulin Ratio 1.3 0.9-2 Lipase 135 73-393 U/L Assessment & Plan Acute cholecystitis -IV abx -to OR for lap jose antonio today
[2017-06-21] MEDS: SODIUM CHLORIDE 0.9% 1000ML 1,000 ML IV SCH ×3 (05:32→22:12)
[2017-06-21] MEDS ORDERED: FENTANYL CITRATE INJ 50 MCG/1 ML 2 ML VIAL ONE ×3 (06:23→08:06)
[2017-06-21] MEDS ORDERED: MIDAZOLAM HCL 1 MG/ML 2ML VIAL ONE (06:23)
[2017-06-21] MEDS ORDERED: LIDOCAINE HCL 2% 2 ML VIAL (20MG/ML) ONE (06:56)
[2017-06-21] MEDS ORDERED: ONDANSETRON INJ 2 MG/ML 2 ML VIAL ONE (06:56)
[2017-06-21] MEDS ORDERED: PROPOFOL IV EMULSION 10 MG/ML 20 ML VIAL IV ONE (06:56)
[2017-06-21] MEDS ORDERED: ROCURONIUM BROMIDE 10 MG/ML 5 ML VIAL IV ONE (06:56)
[2017-06-21] MEDS ORDERED: DEXAMETHASONE SOD INJ 4 MG/ML VIAL ONE (06:56)
[2017-06-21] MEDS ORDERED: BUPIVACAINE/EPINEPHRINE 0.5% MPF 1:200,000 30 ML VIAL ONE (07:08)
[2017-06-21] MEDS ORDERED: ATROPINE SULFATE 0.1 MG/ML 5ML SYR IV PRN (07:30)
[2017-06-21] MEDS ORDERED: PROMETHAZINE HCL INJ 12.5 MG in SODIUM CHLORIDE 0.9% 50ML 50 ML IV PRN (07:30)
[2017-06-21] MEDS ORDERED: ONDANSETRON INJ 2 MG/ML 2 ML VIAL IV PRN (07:30)
[2017-06-21] MEDS ORDERED: KETOROLAC TROMETHAMINE 30 MG/ML VIAL IV. PRN (07:30)
[2017-06-21] MEDS ORDERED: LABETALOL HCL IV 5 MG/ML 20ML IV PRN (07:30)
[2017-06-21] MEDS ORDERED: GLYCOPYRROLATE INJ 0.2 MG/ML VIAL ONE (08:05)
[2017-06-21] MEDS ORDERED: NEOSTIGMINE METHYLSULFATE 5 MG/5 ML SYR ONE (08:05)
[2017-06-21] MEDS ORDERED: OXYCODONE/ACETAMINOPHEN 5-325 TAB PO PRN (08:15)
--- NOTE | 2017-06-21 08:15 | [facility] Post Operative Brief Note ---
Immediate Operative Summary Operative Date Jun 21, 2017. Pre-Operative Diagnosis Acute Cholecystitis Post-Operative Diagnosis same Procedure(s) Performed Laparoscopic Cholecystectomy Surgeon Dr. Negron Mirror Painter Surgeon(s) none Estimated Blood Loss 25 ML Findings acute inflammation Specimens a. gallbladder Drains none Anesthesia GETA w/marcaine Complication(s) None Disposition Recovery Room / PACU
[2017-06-21] MEDS ORDERED: HYDROmorphone INJ 2 MG/ML SYR/VIAL ONE (08:35)
[2017-06-21] MEDS: HYDROmorphone INJ 2 MG/ML SYR/VIAL IV PRN ×4 (08:37→09:00)
--- NOTE | 2017-06-21 08:45 | OPERATIVE REPORT ---
DATE OF OPERATION: 06/21/2017 PREOPERATIVE DIAGNOSIS: Acute cholecystitis. POSTOPERATIVE DIAGNOSIS: Same. PROCEDURE PERFORMED: Laparoscopic cholecystectomy. SURGEON: Dr. Won Negron. TYPEWRITER ALIGNER: None. ANESTHESIA: General endotracheal with 0.5% Marcaine with epinephrine local. ESTIMATED BLOOD LOSS: 25 mL DRAINS: None. COMPLICATIONS: None. SPECIMENS: Gallbladder sent to pathology. INDICATION FOR PROCEDURE: This is a 51-year-old male who was seen through the ER with complaints of right upper quadrant abdominal pain. He had known gallstones. A repeat ultrasound was done. It did not show any acute findings consistent with acute cholecystitis. He had continued pain. Therefore, he will be admitted, placed on IV antibiotics, IV fluids and taken to the OR for laparoscopic cholecystectomy. We talked to him in detail about the risks. DESCRIPTION OF PROCEDURE: The patient was taken to the OR and underwent excellent general endotracheal anesthesia. His abdomen was prepped and draped in normal sterile fashion. Transverse supraumbilical incision was made and dissection was taken down to identify his anterior fascia. Two Vicryls were placed in either side of midline. The midline was incised sharply. A Sarah trocar was then inserted and secured. Good pneumoperitoneum achieved to 15 mmHg pressure. The patient was placed in head up and rolled to the left. Eleven subxiphoid and two 5 lateral ports were placed in normal fashion. His gallbladder was identified, it had acute inflammatory changes. The fundus was grasped and retracted superiorly. The neck was grasped and retracted laterally. The peritoneal attachments were taken down and his cystic artery and cystic duct were identified and skeletonized. A medial and lateral window were created between the gallbladder and gallbladder fossa showing these structures going straight to the gallbladder. Once this critical view was noted, three clips were placed distally in the cystic duct, 1 proximally and the cystic duct was transected. Two clips were then placed proximally in the cystic artery, 1 distally in the cystic duct and cystic artery was transected. A posterior branch was also clipped and transected. Electrocautery hook was then used to remove the gallbladder from gallbladder fossa. The gallbladder was brought out with an Endobag and sent for pathologic evaluation. There was a little bit of spillage of bile, but no spillage of stones. The abdomen was irrigated out and suctioned clear. The gallbladder fossa was checked and there were a few raw spots, which were cauterized. There was probably about 25 mL total of blood loss. Ports were then removed. Pneumoperitoneum was decompressed. A 0 Vicryl was used to close the fascial defect. A 0.5% Marcaine with epinephrine local was used to create a local field block. Interrupted Vicryl was used to close the subQ and the skin. Steri-Strips and benzoin were used to reinforce the incision. Sterile dressings were applied. The patient tolerated the procedure well without any complications, sent to post-recovery for a period of observation and then will be discharged to his room once he meets criteria. I attest to the content of the Intraoperative Record and any orders documented therein. Any exception s are noted below.
[2017-06-21] MEDS: ASCORBIC ACID 500 MG TAB PO SCH (09:00)
[2017-06-21] MEDS: MULTIVITAMIN TAB PO SCH (09:00)
--- NOTE | 2017-06-21 09:39 | Anesthesiology Progress Note ---
Anesthesia Post Op Note Date & Time Jun 21, 2017 at 09:38 Vital Signs Pain Intensity: 3 Vital Signs Past 12 Hours Date Time Temp Pulse Resp B/P (MAP) Pulse Ox O2 Delivery O2 Flow Rate FiO2 06/21/17 09:32 36.5 06/21/17 09:30 136/74 06/21/17 09:28 71 20 93 06/21/17 09:28 71 20 06/21/17 09:25 141/72 06/21/17 09:23 82 15 93 06/21/17 09:23 77 15 06/21/17 09:22 71 18 96 06/21/17 09:22 70 18 06/21/17 09:20 141/76 06/21/17 09:17 81 17 94 06/21/17 09:17 80 17 06/21/17 09:15 148/76 06/21/17 09:12 97 17 06/21/17 09:12 97 17 157/120 95 06/21/17 09:11 91 16 95 06/21/17 09:11 89 16 06/21/17 09:00 150/90 06/21/17 08:56 80 20 93 06/21/17 08:56 80 20 06/21/17 08:51 83 17 145/79 96 06/21/17 08:51 83 17 06/21/17 08:46 77 15 06/21/17 08:46 77 15 95 06/21/17 08:45 143/79 06/21/17 08:42 144/61 06/21/17 08:41 83 16 06/21/17 08:41 80 16 91 06/21/17 08:39 146/77 06/21/17 08:36 80 21 06/21/17 08:36 82 21 96 06/21/17 08:31 74 16 06/21/17 08:31 74 16 97 06/21/17 08:27 161/96 06/21/17 08:26 83 23 95 06/21/17 08:26 36.4 72 18 161/96 98 Oxymask 10 06/21/17 08:26 82 23 06/21/17 05:57 37.0 81 18 118/79 (92) 95 Room Air 06/20/17 23:35 Room Air 06/20/17 23:21 36.9 81 16 120/71 (87) 95 Room Air Notes Mental Status: alert / awake / arousable, participated in evaluation Pt Amnestic to Procedure: Yes Nausea / Vomiting: adequately controlled Pain: adequately controlled Airway Patency, RR, SpO2: stable & adequate BP & HR: stable & adequate Hydration State: stable & adequate Anesthetic Complications: no major complications apparent
[2017-06-21] MEDS: SIMETHICONE 80 MG CHEW PO PRN (10:18)
[2017-06-21 11:24] LABS: HEMATOCRIT 43.7 % (42-52); MEAN CELL VOLUME 88.6 fL (80-100); MEAN CORPUSCULAR HEMOGLOBIN 31.8 pg (25-34); MEAN CORPUSCULAR HGB CONC 35.9 g/dl (32-36); MEAN PLATELET VOLUME 8.8 fL (7.4-10.4); PLATELET COUNT 132 K/uL (130-400); RED BLOOD COUNT 4.93 M/uL (4.7-6.1); WHITE BLOOD COUNT 8.52 K/uL (4.8-10.8)
[2017-06-21] MEDS: MoRPHine SULFATE 2 MG/ML CARP IV PRN ×3 (11:28→22:15)
[2017-06-21] MEDS: PANTOprazole INJ 40 MG in SYRINGE 0 ML IV SCH (11:35)
[2017-06-21] MEDS: SERTRALINE HCL 100 MG TAB PO SCH (11:36)
[2017-06-21] MEDS: PRIMIDONE 50 MG TAB PO SCH (11:36)
[2017-06-21] MEDS: PROPRANOLOL HCL 20 MG TAB PO SCH ×2 (11:36→20:30)
[2017-06-21] MEDS: FLUTICASONE HFA 110MCG INHALER INH SCH ×2 (11:36→20:30)
[2017-06-21] MEDS: CETIRIZINE HCL 10 MG TAB PO SCH (11:37)
[2017-06-21 11:54] LABS: BUN/CREATININE RATIO 15.6 (10-20); CALCIUM 8.6 mg/dl (8.5-10.1); CREATININE 0.91 mg/dl (0.60-1.40); POTASSIUM 3.3 mmol/L (3.5-5.1)
[2017-06-21 11:57] LABS: COMPLETE YES; EOS % 0.2 %; IG% 0.4 %; LYMPH % 5.3 %; LYMPH ABS # 0.45 K/uL (1.2-3.4); MONO % 2.5 %; NEUT % 91.6 %
[2017-06-22 03:23] VITALS: BP 115/66; PULSE 64; TEMP 36.4; O2SAT 95
[2017-06-22] MEDS: PIPERACILL/TAZOBAC IV 3.375 GM in DEXTROSE 5% 100ML 100 ML IV SCH (03:46)
[2017-06-22] MEDS: SODIUM CHLORIDE 0.9% 1000ML 1,000 ML IV SCH (06:15)
--- NOTE | 2017-06-22 06:27 | Surgery Progress Note ---
Surgery Progress Note Date of Service Jun 22, 2017. Subjective Post OP Day: 1 + feeling well Objective Vital Signs: Date Time Temp Pulse Resp B/P (MAP) Pulse Ox O2 Delivery O2 Flow Rate FiO2 06/22/17 03:23 36.4 64 16 115/66 (82) 95 CPAP 06/21/17 23:20 Room Air 06/21/17 23:00 36.3 68 18 131/85 (100) 96 Room Air 06/21/17 19:30 36.5 69 17 121/80 (94) 94 Room Air 06/21/17 15:56 36.6 73 17 126/78 (94) 94 Room Air 06/21/17 15:15 Room Air 06/21/17 14:56 36.8 79 16 132/78 (96) 97 Room Air 06/21/17 11:55 111 16 148/89 (108) 94 Room Air 06/21/17 11:02 Room Air 06/21/17 10:25 36.8 110 18 162/83 (109) 94 Room Air 06/21/17 09:55 Nasal Cannula 2.0 06/21/17 09:55 36.8 76 16 144/77 (99) 95 Nasal Cannula 2.0 06/21/17 09:41 77 13 95 06/21/17 09:41 75 13 06/21/17 09:40 138/74 06/21/17 09:36 78 17 06/21/17 09:36 78 17 94 06/21/17 09:35 135/71 06/21/17 09:32 36.5 06/21/17 09:31 73 12 06/21/17 09:31 73 12 94 06/21/17 09:30 136/74 06/21/17 09:28 71 20 93 06/21/17 09:28 71 20 06/21/17 09:25 141/72 06/21/17 09:23 82 15 93 06/21/17 09:23 77 15 06/21/17 09:22 71 18 96 06/21/17 09:22 70 18 06/21/17 09:20 141/76 06/21/17 09:17 81 17 94 06/21/17 09:17 80 17 06/21/17 09:15 148/76 06/21/17 09:12 97 17 06/21/17 09:12 97 17 157/120 95 06/21/17 09:11 91 16 95 06/21/17 09:11 89 16 06/21/17 09:00 150/90 06/21/17 08:56 80 20 93 06/21/17 08:56 80 20 06/21/17 08:51 83 17 145/79 96 06/21/17 08:51 83 17 06/21/17 08:46 77 15 06/21/17 08:46 77 15 95 06/21/17 08:45 143/79 06/21/17 08:42 144/61 06/21/17 08:41 83 16 06/21/17 08:41 80 16 91 06/21/17 08:39 146/77 06/21/17 08:36 80 21 06/21/17 08:36 82 21 96 06/21/17 08:31 74 16 06/21/17 08:31 74 16 97 06/21/17 08:27 161/96 06/21/17 08:26 83 23 95 06/21/17 08:26 36.4 72 18 161/96 98 Oxymask 10 06/21/17 08:26 82 23 General Appearance: WD/WN, no apparent distress Head: normocephalic, atraumatic Neck: supple, trachea midline Respiratory/Chest: lungs clear Cardiovascular: regular rate, rhythm Abdomen: normal bowel sounds, non distended, soft, + tenderness Incision(s): dry, intact Extremities: non-tender, normal inspection Laboratory Results: Results Past 24 Hours Test 06/21/17 10:58 06/22/17 04:44 Range/Units White Blood Count 8.52 4.8-10.8 K/uL Red Blood Count 4.93 4.7-6.1 M/uL Hemoglobin 15.7 14.0-18.0 g/dL Hematocrit 43.7 42-52 % Mean Corpuscular Volume 88.6 80-100 fL Mean Corpuscular Hemoglobin 31.8 25-34 pg Mean Corpuscular Hemoglobin Concent 35.9 32-36 g/dl Platelet Count 132 130-400 K/uL Mean Platelet Volume 8.8 7.4-10.4 fL Neutrophils (%) (Auto) 91.6 % Lymphocytes (%) (Auto) 5.3 % Monocytes (%) (Auto) 2.5 % Eosinophils (%) (Auto) 0.2 % Basophils (%) (Auto) 0.0 % Neutrophils # (Auto) 7.81 1.4-6.5 K/uL Lymphocytes # (Auto) 0.45 1.2-3.4 K/uL Monocytes # (Auto) 0.21 0.11-0.59 K/uL Eosinophils # (Auto) 0.02 0-0.5 K/uL Basophils # (Auto) 0.00 0-0.2 K/uL RDW Standard Deviation 40.6 36.4-46.3 fL RDW Coefficient of Variation 12.7 11.5-14.5 % Immature Granulocyte % (Auto) 0.4 % Immature Granulocyte # (Auto) 0.03 0.00-0.02 K/uL Red Blood Cell Morphology Unremarkable Sodium Level 137 136-145 mmol/L Potassium Level 3.3 3.5-5.1 mmol/L Chloride Level 106 98-107 mmol/L Carbon Dioxide Level 22 21-32 mmol/L Anion Gap 9.0 3-11 mmol/L Blood Urea Nitrogen 14 7-18 mg/dl Creatinine 0.91 0.60-1.40 mg/dl Est Creatinine Clear Calc Drug Dose 119.5 ml/min Estimated GFR () 113.5 Estimated GFR (Non- 97.9 BUN/Creatinine Ratio 15.6 10-20 Random Glucose 124 70-99 mg/dl Calcium Level 8.6 8.5-10.1 mg/dl Total Bilirubin 2.1 0.2-1 mg/dl Direct Bilirubin 0.4 0-0.2 mg/dl Aspartate Amino Transf (AST/SGOT) 46 15-37 U/L Alanine Aminotransferase (ALT/SGPT) 53 12-78 U/L Alkaline Phosphatase 64 45-117 U/L Total Protein 7.3 6.4-8.2 gm/dl Albumin 3.6 3.4-5.0 gm/dl Assessment & Plan Acute cholecystitis -doing well -home today Acute cholecystitis -IV abx -to OR for lap jose antonio today
[2017-06-22] MEDS ORDERED: OXYC-57 PO (06:28)
--- NOTE | 2017-06-22 06:30 | Discharge Instructions ---
Discharge Instructions Date of Service Jun 22, 2017. Admission Reason for Admission: Abdominal Bloating,Cholelithiasis,Nausea And Vomit Discharge Discharge Diagnosis / Problem: s/p lap jose antonio Discharge Goals Goal(s): Therapeutic intervention Activity Recommendations Activity Limitations: per Instructions/Follow-up section Lifting Limitations: no more than 25 pounds Exercise/Sports Limitations: until after follow-up appointment May Resume Sexual Activity: when tolerated Shower/Bathe: no limitations (shower) Driving or Machine Use: resume 3 days after discharge . Instructions / Follow-Up Instructions / Follow-Up Jamil; Joni adamesks; [phone] Current Hospital Diet Patient's current hospital diet: Regular Diet Discharge Diet Recommended Diet: Regular Diet Procedures Procedures Performed: Laparoscopic Cholecystectomy Pending Studies Studies pending at discharge: no Work Instructions Return To Work: after follow-up Lifting Limitations: no more than 20 pounds Medical Emergencies . Who to Call and When: Medical Emergencies: If at any time you feel your situation is an emergency, please call 911 immediately. . Non-Emergent Contact Non-Emergency issues call your: Surgeon Call Non-Emergent contact if: temperature is above 101.5, your pain is not controlled, your pain is worsening, your pain is unusual for you, your pain is concerning you, wound has increased redness, wound has increased pain, you have any medication questions . "Provider Documentation" section prepared by Won Negron. . VTE Core Measure Inpt VTE Proph given/why not?: SCD's [place] Drug Monitoring Program Search Results: patient reviewed within database
[2017-06-22 07:23] VITALS: BP 132/85; PULSE 61; TEMP 36.8; O2SAT 96
[2017-06-22 08:04] LABS: ALB/GLOB RATIO 0.9 (0.9-2); BUN/CREATININE RATIO 10.3 (10-20); CALCIUM 8.2 mg/dl (8.5-10.1); CREATININE 0.79 mg/dl (0.60-1.40); POTASSIUM 3.6 mmol/L (3.5-5.1)
[2017-06-22 08:34] VITALS: BP 132/85; PULSE 61; TEMP 36.8; O2SAT 96
[2017-06-22] MEDS: MULTIVITAMIN TAB PO SCH (09:27)
[2017-06-22] MEDS: PRIMIDONE 50 MG TAB PO SCH (09:27)
[2017-06-22] MEDS: SERTRALINE HCL 100 MG TAB PO SCH (09:27)
[2017-06-22] MEDS: ASCORBIC ACID 500 MG TAB PO SCH (09:27)
[2017-06-22] MEDS: CETIRIZINE HCL 10 MG TAB PO SCH (09:28)
[2017-06-22] MEDS: PROPRANOLOL HCL 20 MG TAB PO SCH (09:28)
[2017-06-22] MEDS: FLUTICASONE HFA 110MCG INHALER INH SCH (09:28)
[2017-06-22] MEDS: ACETAMINOPHEN 325 MG TAB PO PRN (10:21)
--- NOTE | 2017-06-23 07:07 | DISCHARGE SUMMARY ---
DIAGNOSIS: Acute cholecystitis. ATTENDING PHYSICIAN: Dr. Won Negron. PROCEDURE PERFORMED: Laparoscopic cholecystectomy. HISTORY OF PRESENT ILLNESS: This is a 51-year-old male with known gallstones, who had an acute attack on Friday, was seen in the ER, was admitted, placed on IV antibiotics and IV fluids and will be taken to the OR for laparoscopic cholecystectomy. HOSPITAL COURSE: The patient on same day was admitted Friday night and got IV fluids, IV antibiotics, was taken to the OR the next morning. He had an acute gallbladder, but underwent a laparoscopic cholecystectomy without incident. He was maintained on IV antibiotics and IV fluids. He had an ultrasound, which showed no dilated duct. He had a slight elevation in his total bilirubin. This stayed stable and therefore will be followed. He tolerated his diet. He had good activity and was discharged to home on postoperative day #1. DISCHARGE MEDICATIONS: Percocet 1 tablet p.o. q. 4 hours p.r.n. pain, vitamin C 500 mg p.o. daily, Astepro 2 sprays nasally daily p.r.n., calcium D 1 tablet p.o. daily, Zyrtec 10 mg p.o. daily, echinacea 400 mg p.o. twice a day, Flovent 1 puff inhaled twice a day, Ginkgo biloba 1 tablet p.o. daily, meloxicam 15 mg p.o. daily, Reglan 5 mg p.o. t.i.d., multivitamin 1 tablet p.o. daily, omeprazole 20 mg p.o. daily, Mysoline 20 mg p.o. daily, Inderal 40 mg p.o. b.i.d., Zoloft 20 mg p.o. daily. DIET: Regular as tolerated. ACTIVITIES: No strenuous activity. Follow up in 2 weeks in my office.
== END 2017-06-22 10:40 | disposition home or self-care (01) ==
LOC: C.EDB 05:51 → C.MSW 12:20 → ENRESERV 13:18
PROVIDERS: ADMIT Surgery; ATTEND Surgery
DX: K80.10 Calculus of gallbladder with chronic cholecystitis without obstruction (principal); G47.33 Obstructive sleep apnea (adult) (pediatric); J45.909 Unspecified asthma, uncomplicated; Z98.890 Other specified postprocedural states; Z79.899 Other long term (current) drug therapy

== ENCOUNTER → 2017-06-25 | Outpatient (CLI) | payer OTHER ==
[~2017-06-25] MED LIST changes: -ALBU18002 INH; +AZEL0.15 NAE; +GADOXETATE DISODIUM (NON-WT BASED PROCEDURE) IV PRN; +METO-157 PO; +OMEP20TA PO; +OXYC-57 PO; +PROP20TA67 PO; -PROP80TA2 PO
--- NOTE | 2017-06-25 12:45 | DIAGNOSTIC IMAGING REPORT ---
MRI OF THE LIVER WITH AND WITHOUT CONTRAST CLINICAL HISTORY: Hepatic lesion. Recent cholecystectomy. COMPARISON STUDY: Right upper quadrant ultrasound June 09, 2017 and June 20, 2017. TECHNIQUE: Utilizing a 1.5 Rafaela magnet and dedicated coil, multiplanar, multiecho imaging of the abdomen was performed pre and postcontrast administration. Intravenous injection of 10 cc of Eovist was uneventful. Post contrast imaging was performed with dynamic enhancement, including 20 minute delayed phase imaging. FINDINGS: Liver morphology is normal. Note is made of a 1.7 cm T2 hyperintense segment 8 hepatic lesion which corresponds to the lesion shown on ultrasound of June 09, 2017 and June 20, 2017. This demonstrates minimal peripheral enhancement. Increased signal intensity on the diffusion weighted sequences and ADC map are noted. A 5 mm cyst within the lateral segment of the liver is noted. Note is made of 2 foci of increased signal intensity on the diffusion-weighted sequence within the right hepatic lobe that measure up to 9 mm. A subtle corresponding T2 hyperintense lesion is noted within segment 7 of the liver shown on axial image 7, measuring 1 cm. These likely reflect additional small hemangiomas. There are are expected findings following recent cholecystectomy, including minimal signal abnormality within the operative bed. There is no operative bed fluid collection. There is no biliary or pancreatic ductal dilatation. Mild splenomegaly is noted. There are several small renal cysts. IMPRESSION: 1. 1.7 cm T2 hyperintense segment 8 hepatic lesion which demonstrates minimal peripheral enhancement. This corresponds to the lesion shown on prior ultrasound. A hemangioma is favored. Several additional right hepatic lobe lesions measure up to 1 cm and are too small to characterize but likely reflect additional hemangiomas. 2. Expected findings following recent cholecystectomy. 3. Mild splenomegaly. Electronically signed by: Esteban Bustamante M.D. 06/25/2017 12:44 PM Dictated Date/Time: 06/25/2017 12:13 PM
== END | disposition home or self-care (01) ==
LOC: C.MRI 10:42
PROVIDERS: ATTEND Nurse Practitioner Adult Health
DX: K76.89 Other specified diseases of liver (principal); Z90.49 Acquired absence of other specified parts of digestive tract; R16.1 Splenomegaly, not elsewhere classified

== ENCOUNTER → 2017-06-26 | Outpatient (CLI) | payer OTHER ==
[~2017-06-26] MED LIST changes: -GADOXETATE DISODIUM (NON-WT BASED PROCEDURE) IV PRN
--- NOTE | 2017-06-26 12:02 | DIAGNOSTIC IMAGING REPORT ---
GUIDANCE NEEDLE PLACEMENT CLINICAL HISTORY: BENIGN NEOPLASM OF THRYOID GLAND nodule TECHNIQUE: Ultrasound guided fine-needle aspiration COMPARISON STUDY: 06/16/2017 FINDINGS: Following description of procedure and informed consent, 3 passes with a 25-gauge needle were made to the dominant nodule of the left thyroid. Pathology initially indicated adequate cellularity. There are no complications. IMPRESSION: Fine-needle aspiration left thyroid. No complications. The above report was generated using voice recognition software. It may contain grammatical, syntax or spelling errors. Electronically signed by: Anthony Goncalves M.D. 06/26/2017 12:01 PM Dictated Date/Time: 06/26/2017 12:00 PM
== END | disposition home or self-care (01) ==
LOC: C.ULTR 11:04
PROVIDERS: ATTEND Otolaryngology
DX: E04.1 Nontoxic single thyroid nodule (principal)

== ENCOUNTER → 2018-02-12 | Day surgery (SDC) | payer OTHER ==
[2017-06-05 11:12] VITALS: BMI 28.0
[2018-02-11 14:16] VITALS: Ht 185.4 cm; Wt 103.6 kg
[~2018-02-12] VITALS: Ht 185.4 cm; Wt 103.6 kg
[~2018-02-12] MED LIST changes: +FENTANYL CITRATE INJ 50 MCG/1 ML 2 ML VIAL ONE; +LIDOCAINE HCL 2% 2 ML VIAL (20MG/ML) ONE; +MELO-83 PO; -MELO15TA4 PO; +NRN/300 PO; +ONDANSETRON INJ 2 MG/ML 2 ML VIAL ONE; -OXYC-57 PO; +PROPOFOL IV EMULSION 10 MG/ML 20 ML VIAL ONE; +SODIUM CHLORIDE 0.9% 500ML 500 ML IV ONE
--- NOTE | 2018-02-12 15:10 | Endo History and Physical ---
History & Physical Date of Service: Feb 12, 2018. Chief Complaint: GERD and Screening Referring Physician: Dr. Knowles History of Present Illness 52 yo CM who presents for EGD secondary to GERD and screening colonoscopy. Past Medical History Arthritis, Asthma, Reflux, Sleep Apnea, Thyroid Disease Past Surgical History Hx Cardiac Surgery: No Hx Internal Defibrillator: No Hx Pacemaker: No Hx Abdominal Surgery: Yes (DOUBLE HERNIA REPAIR WITH PARTIAL COLON RESECTION, LAP MARISA) Hx of Implantable Prosthesis: No Hx Post-Op Nausea and Vomiting: Yes (SEVERE NAUSEA) Hx Cancer Surgery: No Hx Thoracic Surgery: No Hx Orthopedic: Yes (LT ACHILLES REPAIR, RT WRIST SURGERY, RT ELBOW SURGERY) Hx Urinary Tract Surgery: No Family History None Social History Smoking Status: Never Smoker Hx Substance Use: No Hx Alcohol Use: Yes (COUPLE GLASSES A DAY OF WINE) Allergies Coded Allergies: No Known Allergies (Unverified , 02/11/18) Current Medications Reported Home Medications Medications Dose Route/Sig Max Daily Dose Days Date Category Dose Instructions Neurontin (Gabapentin) 300 Mg Cap 300 Mg PO TID 02/11/18 Reported Astepro (Azelastine Hcl) 0.15 % Spr 2 [place] AARON DAILY PRN 06/20/17 Reported Reglan (Metoclopramide HCl) 10 Mg Tab 5 Mg PO TID 06/20/17 Reported Inderal (Propranolol HCl) 20 Mg Tab 40 Mg PO BID 06/20/17 Reported Omeprazole 20 Mg Tab 20 Mg PO QAM 06/20/17 Reported Flovent Hfa (Fluticasone Propionate) 120 Puffs/77345 Mcg Aero 1 Puff INH BID 06/05/17 Reported Gnp Ginkgo Biloba (Ginkgo Biloba) 120 Mg Tab 1 Tab PO DAILY 06/05/17 Reported Echinacea 400 Mg Cap 400 Mg PO BID 06/05/17 Reported Vitamin C (Ascorbic Acid) 500 Mg Tab 500 Mg PO DAILY 06/05/17 Reported Calcium + D (Calcium Carbonate-Vitamin D) 1 Tab Tab 1 Tab PO DAILY 06/05/17 Reported Meloxicam 15 Mg Tab 15 Mg PO QAM 06/05/17 Reported WITH FOOD Zoloft (Sertraline HCl) 100 Mg Tab 200 Mg PO QAM 06/05/17 Reported Mysoline (Primidone) 50 Mg Tab 50 Mg PO QAM 06/05/17 Reported Zyrtec (Cetirizine HCl) 10 Mg Tab 10 Mg PO DAILY 06/05/17 Reported Multivitamin (Multivitamins) Tab 1 Tab PO DAILY 04/03/09 Reported Vital Signs Weight (Kilograms): 103.64 Height (Feet): 6 Height (Inches): 1 Physical Exam General Appearance: WD/WN, no apparent distress Respiratory/Chest: Auscultation: breath sounds normal Cardiovascular: Heart Auscultation: RRR Abdomen: Bowel Sounds: normal Inspection & Palpation: soft, non-distended, no tenderness, guarding & rebound Assessment and Plan Assessment: 52 yo CM who presents for EGD secondary to GERD and screening colonoscopy. Plan: Proceed with EGD and colonoscopy.
--- NOTE | 2018-02-12 16:49 | Discharge Instructions ---
Endoscopy Patient Instructions Date / Procedure(s) Performed Feb 12, 2018. Colonoscopy, EGD Allergy Information Coded Allergies: No Known Allergies (Unverified , 02/12/18) Discharge Date / Findings Feb 12, 2018. EGD: Gastritis with biopsies Colonoscopy: Internal hemorrhoids Medication Instructions Stopped Medication(s): Everything but Primidone, Inderal and Zoloft OK to resume all medications today as prescribed Reported Home Medications Medications Dose Route/Sig Max Daily Dose Days Date Category Dose Instructions Neurontin (Gabapentin) 300 Mg Cap 300 Mg PO TID 02/11/18 Reported Astepro (Azelastine Hcl) 0.15 % Spr 2 [place] AARON DAILY PRN 06/20/17 Reported Reglan (Metoclopramide HCl) 10 Mg Tab 5 Mg PO TID 06/20/17 Reported Inderal (Propranolol HCl) 20 Mg Tab 40 Mg PO BID 06/20/17 Reported Omeprazole 20 Mg Tab 20 Mg PO QAM 06/20/17 Reported Flovent Hfa (Fluticasone Propionate) 120 Puffs/54053 Mcg Aero 1 Puff INH BID 06/05/17 Reported Gnp Ginkgo Biloba (Ginkgo Biloba) 120 Mg Tab 1 Tab PO DAILY 06/05/17 Reported Echinacea 400 Mg Cap 400 Mg PO BID 06/05/17 Reported Vitamin C (Ascorbic Acid) 500 Mg Tab 500 Mg PO DAILY 06/05/17 Reported Calcium + D (Calcium Carbonate-Vitamin D) 1 Tab Tab 1 Tab PO DAILY 06/05/17 Reported Meloxicam 15 Mg Tab 15 Mg PO QAM 06/05/17 Reported WITH FOOD Zoloft (Sertraline HCl) 100 Mg Tab 200 Mg PO QAM 06/05/17 Reported Mysoline (Primidone) 50 Mg Tab 50 Mg PO QAM 06/05/17 Reported Zyrtec (Cetirizine HCl) 10 Mg Tab 10 Mg PO DAILY 06/05/17 Reported Multivitamin (Multivitamins) Tab 1 Tab PO DAILY 04/03/09 Reported Provider Instructions Activity Restrictions - No exercising or heavy lifting for 24 hours. - Do not drink alcohol the day of the procedure. - Do not drive a car or operate machinery until the day after the procedure. - Do not make any important decisions or sign important papers in 24 hours after the procedure. Following Day: - Return to full activity which may include returning to work/school. Diet Start your diet with liquids and light foods (jello, soup, juice, toast). Then eat your usual diet if not nauseated. Treatment For Common After Affects For mild abdominal pain, bloating, or excessive gas: - Rest - Eat lightly - Lie on right side Follow-Up Information Follow-up with Dr. Knowles as scheduled Anesthesia Information What You Should Know You have had a procedure that required some medicine to reduce anxiety and discomfort. This treatment is called moderate sedation. After receiving the treatment, you may be sleepy, but you will be able to breathe on your own. The effects of the treatment may last for several hours. Follow these instructions along with Activity/Diet recommendations noted above: * Do NOT do anything where dizziness or clumsiness would be dangerous. * Rest quietly at home today, then you can be up and about tomorrow. * Have a responsible person stay with you the rest of today. * You may have had an I.V. today. If so, you may take the dressing off later today. Recommendations Call your doctor if: * Trouble breathing * Continuous vomiting for more than 24 hours * Temperature above 101 degrees * Severe abdominal pain or bloating * Pain not relieved by pain medicine ordered * There is increased drainage or redness from any incision * A large amount of rectal bleeding greater than 2-3 tablespoons. (If you had a polyp/s removed or have hemorrhoids, a small amount of blood - from the rectum is to be expected.) * You have any unanswered questions or concerns. IN THE EVENT OF A SERIOUS EMERGENCY, GO TO THE NEAREST EMERGENCY ROOM Your discharge instructions were prepared by provider Bola Schultz. Patient Instructions Signature Page Chris Rosa Patient (or Guardian) Signature/Date: I have read and understand the instructions given to me by my caregivers. Caregiver/RN/Doctor Signature/Date: The above-named patient and/or guardian has received patient instructions on this date. + Original Patient Signature Page (only) stays with chart. Please make copy for patient.
--- NOTE | 2018-02-12 17:05 | Anesthesiology Progress Note ---
Anesthesia Post Op Note Date & Time Feb 12, 2018 at 17:05 Vital Signs Pain Intensity: 0 Vital Signs Past 12 Hours Date Time Temp Pulse Resp B/P (MAP) Pulse Ox O2 Delivery O2 Flow Rate FiO2 02/12/18 16:50 75 20 130/59 (82) 93 Room Air 02/12/18 16:35 36 79 17 129/80 (96) 95 Room Air 02/12/18 15:18 36.7 76 16 135/75 (95) 96 Room Air Notes Mental Status: alert / awake / arousable, participated in evaluation Pt Amnestic to Procedure: Yes Nausea / Vomiting: adequately controlled Pain: adequately controlled Airway Patency, RR, SpO2: stable & adequate BP & HR: stable & adequate Hydration State: stable & adequate Anesthetic Complications: no major complications apparent
--- NOTE | 2018-02-12 17:07 | GI REPORT ---
Patient Name: Chris Rosa Procedure Date: 02/12/2018 3:40 PM Date of : 1965 Admit Type: Outpatient Age: 52 Gender: Male Attending MD: Bola Schultz DO Procedure: Colonoscopy Providers: Bola Schultz DO Referring MD: Zane Peralta Indications: Screening for colorectal malignant neoplasm Medicines: Monitored Anesthesia Care Complications: No immediate complications. Estimated Blood Loss: Estimated blood loss: none. Procedure: Pre-Anesthesia Assessment: - Prior to the procedure, a History and Physical was performed, and patient medications and allergies were reviewed. The patient's tolerance of previous anesthesia was also reviewed. The risks and benefits of the procedure and the sedation options and risks were discussed with the patient. All questions were answered, and informed consent was obtained. Prior Anticoagulants: The patient has taken no previous anticoagulant or antiplatelet agents. ASA Grade Assessment: II - A patient with mild systemic disease. After reviewing the risks and benefits, the patient was deemed in satisfactory condition to undergo the procedure. After I obtained informed consent, the scope was passed under direct vision. Throughout the procedure, the patient's blood pressure, pulse, and oxygen saturations were monitored continuously. The scope was introduced through the anus and advanced to the cecum, identified by appendiceal orifice and ileocecal valve. The colonoscopy was performed without difficulty. The patient tolerated the procedure well. The quality of the bowel preparation was good. The ileocecal valve, appendiceal orifice, and rectum were photographed. Findings: The perianal and digital rectal examinations were normal. Non-bleeding internal hemorrhoids were found during retroflexion. The hemorrhoids were small. Impression: - Non-bleeding internal hemorrhoids. - No specimens collected. Recommendation: - Resume previous diet. - Continue present medications. - Repeat colonoscopy in 10 years for surveillance. - Return to primary care physician as previously scheduled. Bola Schultz DO 02/12/2018 5:07:16 PM This report has been signed electronically. Note Initiated On: 02/12/2018 3:40 PM Number of Addenda: 0 I attest to the content of the Intraoperative Record and orders documented therein, exceptions below {[id number]}
--- NOTE | 2018-02-12 17:08 | GI REPORT ---
Patient Name: Chris Rosa Procedure Date: 02/12/2018 3:40 PM Date of : 1965 Admit Type: Outpatient Age: 52 Gender: Male Attending MD: Bola Schultz DO Procedure: Upper GI endoscopy Providers: Bola Schultz DO Referring MD: Zane Peralta Indications: Suspected gastro-esophageal reflux disease Medicines: Monitored Anesthesia Care Complications: No immediate complications. Estimated Blood Loss: Estimated blood loss: none. Procedure: Pre-Anesthesia Assessment: - Prior to the procedure, a History and Physical was performed, and patient medications and allergies were reviewed. The patient's tolerance of previous anesthesia was also reviewed. The risks and benefits of the procedure and the sedation options and risks were discussed with the patient. All questions were answered, and informed consent was obtained. Prior Anticoagulants: The patient has taken no previous anticoagulant or antiplatelet agents. ASA Grade Assessment: II - A patient with mild systemic disease. After reviewing the risks and benefits, the patient was deemed in satisfactory condition to undergo the procedure. After obtaining informed consent, the endoscope was passed under direct vision. Throughout the procedure, the patient's blood pressure, pulse, and oxygen saturations were monitored continuously. The scope was introduced through the mouth, and advanced to the second part of duodenum. The upper GI endoscopy was accomplished without difficulty. The patient tolerated the procedure well. Findings: The esophagus was normal. Localized mild inflammation characterized by erythema was found in the gastric antrum. Biopsies were taken with a cold forceps for Helicobacter pylori testing. The examined duodenum was normal. Impression: - Normal esophagus. - Gastritis. Biopsied. - Normal examined duodenum. Recommendation: - Resume previous diet. - Continue present medications. - Await pathology results. - Return to primary care physician as previously scheduled. Bola Schultz DO 02/12/2018 5:08:23 PM This report has been signed electronically. Note Initiated On: 02/12/2018 3:40 PM Number of Addenda: 0 I attest to the content of the Intraoperative Record and orders documented therein, exceptions below {[id number]}
[2018-02-12 17:10] VITALS: BP 120/84; PULSE 65; O2SAT 93
== END | disposition home or self-care (01) ==
LOC: C.GI 14:27
PROVIDERS: ATTEND Internal Medicine
DX: Z12.11 Encounter for screening for malignant neoplasm of colon (principal); K64.8 Other hemorrhoids; K21.9 Gastro-esophageal reflux disease without esophagitis; M19.90 Unspecified osteoarthritis, unspecified site; E66.9 Obesity, unspecified; J45.909 Unspecified asthma, uncomplicated; G47.30 Sleep apnea, unspecified; E07.9 Disorder of thyroid, unspecified; Z79.899 Other long term (current) drug therapy
CPT/HCPCS: 43239; G0121

== ENCOUNTER → 2018-02-20 | Outpatient (CLI) | payer OTHER ==
[~2018-02-20] MED LIST changes: -ASCA500 PO; -FENTANYL CITRATE INJ 50 MCG/1 ML 2 ML VIAL ONE; -LIDOCAINE HCL 2% 2 ML VIAL (20MG/ML) ONE; -METO-157 PO; -OMEP20TA PO; -ONDANSETRON INJ 2 MG/ML 2 ML VIAL ONE; -PROPOFOL IV EMULSION 10 MG/ML 20 ML VIAL ONE; -SODIUM CHLORIDE 0.9% 500ML 500 ML IV ONE
--- NOTE | 2018-02-20 14:34 | DIAGNOSTIC IMAGING REPORT ---
MRI LUMBAR SPINE W/O CONTRAST CLINICAL HISTORY: Back pain with bilateral leg radiculopathy. TECHNIQUE: Sagittal and axial T1, T2 and STIR images were obtained. COMPARISON STUDY: No previous studies for comparison. OBSERVATIONS: The vertebral bodies and posterior elements appear intact. There is no abnormal bony signal present to suggest a marrow replacement process. There is an L2 vertebral body hemangioma/focal fatty rest. L1-2: No disc protrusions or extrusions. No evidence of spinal canal or neural foraminal compromise. L2-3: There is a mild circumferential disc bulge. There is minimal spinal canal narrowing. There is no significant foraminal narrowing L3-4: There is a mild circumferential disc bulge. There is minimal spinal canal narrowing. There is no significant foraminal stenosis. L4-5: There is a small central disc protrusion. There is mild central spinal canal narrowing. There is minor bilateral foraminal narrowing. L5-S1: There is a tiny central disc protrusion. There is no significant spinal or foraminal stenosis. The conus medullaris and cauda equina appear normal. IMPRESSION: Mild multilevel spondylitic changes. Minimal spinal canal narrowing at the L2-3, L3-4, and L4-5 levels. Electronically signed by: Ephraim Delatorre M.D. 02/20/2018 2:32 PM Dictated Date/Time: 02/20/2018 2:29 PM
== END | disposition home or self-care (01) ==
LOC: C.MRIBC 13:41
PROVIDERS: ATTEND Physician Assistant Medical
DX: M54.16 Radiculopathy, lumbar region (principal)